=== PATIENT | female | born 2000 | race Caucasian/White ===

== ENCOUNTER 2022-03-04 20:47 | Inpatient (IN) ==
[2022-03-04] MEDS ORDERED: methylPREDNISolone 125 MG/2 ML VIAL IV STA (21:09)
[2022-03-04] MEDS ORDERED: SODIUM CHLORIDE 0.9% 1000ML 1,000 ML IV STA (21:09)
[2022-03-04] MEDS ORDERED: fentaNYL citrate 100 MCG/2 ML VIAL IV PRN (21:09)
[2022-03-04] MEDS ORDERED: ONDANSETRON INJ 2 MG/ML 2 ML VIAL IV STA (21:09)
--- NOTE | 2022-03-04 21:18 | Emergency Department Note ---
Impression & Plan Bowel disease, inflammatory, Acute GI bleeding, Anemia ED Provider Note The patient is a 21-year-old female who presented to the emergency department for an evaluation of abdominal pain.NAME: JORG EA LAMA AGE: 21 SEX: F : 2000 ARRIVES VIA: Walk-In INFORMANT: Patient, ED PROVIDER(S): Wagner Short DO CHIEF COMPLAINT: Abdominal pain HPI: The patient describes diffuse abdominal pain associated with bloody diarrhea. She states that she has had symptoms in the past similar to this with exacerbation of inflammatory bowel disease. The patient is normally treated with biologic medications but she missed her last 2 infusions and her symptoms have slowly been worsening especially over the last few weeks. She called her primary granite cutter and was referred to the emergency department for IV fluids and IV steroids and possible admission for further inpatient management. The patient states that she was having worsening pain especially with palpation of the lower abdomen. She denies having any vaginal bleeding. She denies having any dysuria or frequency. She denies having any fever tonight. She states otherwise she is been compliant with her outpatient medications. She used to have a local granite cutter and she would like to follow-up with him again. ROS: See above HPI for pertinent positives & negatives. A total of 10 systems reviewed and were otherwise negative. PAST MEDICAL HISTORY: See Below PAST SURGICAL HISTORY: See Below FAMILY HISTORY: See Below SOCIAL HISTORY: See Below HOME MEDICATIONS: See Below ALLERGIES: See Below VITALS: See Below PHYSICAL EXAMINATION: GENERAL: Patient is awake alert in no acute distress patient is resting comfortably and showing no signs of anxiety EYES: The conjunctivae are clear. The pupils are round and reactive. EARS, NOSE, MOUTH AND THROAT: The nose is without any evidence of any deformity. NECK: The neck is nontender and supple. RESPIRATORY: Normal respiratory effort is noted there is no evidence of wheezing rhonchi or rales CARDIOVASCULAR: Regular rate and rhythm noted there no murmurs rubs or gallops normal S1 normal S2. GASTROINTESTINAL: The abdomen is soft and nondistended. There is diffuse tenderness to palpation but no guarding rigidity. MUSCULOSKELETAL/EXTREMITIES: There is no evidence of gross deformity full range of motion is noted in the hips and shoulders. SKIN: There is no obvious evidence of any rash. There are no petechiae, pallor or cyanosis noted. NEUROLOGIC: Patient is awake alert and oriented x3 MEDICAL DECISION MAKING: Patient is a 21-year-old female who presented to emergency department for evaluation of abdominal pain. The patient has a history of inflammatory bowel disease. The patient had rectal bleeding as well as abdominal cramping. The patient has a history of seeing gastroenterology in the past for this. She was to be on biologic medications for this however she has missed her last 2 doses. She called her GI doctor and was instructed to go to the emergency department for IV fluids IV steroids and further evaluation and likely admission. The patient was found to have abdominal tenderness but her exam was not consistent with acute surgical abdomen. She was found have anemia. She was treated with IV fluids and IV steroids. She was reevaluated multiple times. Given her findings I [facility] to evaluate the patient in the emergency department for further management and disposition. Triage Nursing notes reviewed. Prior medical records reviewed Vital Signs: reviewed and remarkable for no significant abnormalities Differential diagnosis: Etiologies such as appendicitis, diverticulitis, obstruction, inflammatory bowel disease, renal colic, PUD, biliary pathology, pancreatitis, mesenteric ischemia, aortic pathology, infections, genitourinary, UTI, perforated viscus, as well as others were entertained. ER treatment provided: See below Diagnostics interpreted by me: ECG: none Cardiac Monitoring: An order was placed for continuous cardiac monitoring. The monitor shows a rate of 92 bpm with sinus rhythm. Laboratory studies: As stated above and show below. Imaging studies: See below Consultation(s): I discussed this case with Dr. Vidales who [facility] They will evaluate the patient in the emergency department. Past Med/Surg History Medical History Inflammatory bowel disease PIH ( induced hypertension) Surgical History History of delivery History of colonoscopy Family History Father Ulcerative colitis Social History Smoking Status: Never smoker Hx Alcohol Use: No Hx Substance Use: No Preferred Language: Polish Communication Ability: Effective Snailer Required: No Beliefs That Will Affect Care: None Current Living Situation: Family Current Living Situation Comment: Mother Feels Safe at Home: Yes Assistive Devices: None Allergies Allergies Allergy/AdvReac Type Severity Reaction Status Date / Time No Known Allergies Allergy Verified 03/04/22 22:21 Home Meds Home Medications Medication Instructions Recorded Confirmed vedolizumab 300 mg intravenous 0 mg IV .Q8WKS 03/04/22 03/04/22 solution (Entyvio) Results & Data (ED) Vital Signs Vital Signs - 24 hr 03/04/22 20:50 03/04/22 21:09 Temperature 36.8 C Temperature Source Temporal Artery Scan Pulse Rate 101 H Pulse Rate [Apical] 92 H Pulse Rhythm Regular Pulse Rhythm [Apical] Regular Pulse Strength Normal Respiratory Rate 18 16 Respiratory Effort / Characteristics Non-Labored Spontaneous Respiratory Depth Normal Blood Pressure 121/79 Blood Pressure [Left Arm] 130/44 L Blood Pressure Mean 93 Blood Pressure Mean [Left Arm] 72 Pulse Oximetry 100 97 Oxygen Delivery Method Room Air Room Air Sepsis Recent Fever Within 48 Hours No Sepsis New/Unexplained Change in Mental Status N/A Sepsis Action Taken by Nursing No Action Required Home Medications Current Medication List: was personally reviewed by me Laboratory Data Attestation: I reviewed the patient's lab results. Result diagrams: 03/04/22 21:14 03/04/22 21:14 Lab Results 03/04/22 03/04/22 03/04/22 Range/Units 21:13 21:14 21:14 WBC 10.18 (4.8-10.8) K/uL RBC 3.25 L (4.2-5.4) M/uL Hgb 8.1 L (12.0-16.0) g/dL Hct 27.2 L (37-47) % MCV 83.7 (80-100) fL MCH 24.9 L (25-34) pg MCHC 29.8 L (32-36) g/dL RDW Std Deviation 44.5 (36.4-46.3) fL RDW Coeff of You 14.4 (11.5-14.5) % Plt Count 696 H (130-400) K/uL MPV 8.1 (7.4-10.4) fL Immature Gran % (Auto) 0.6 % Neut % (Auto) 60.6 % Lymph % (Auto) 24.1 % Dooly % (Auto) 8.5 % Eos % (Auto) 5.8 % Baso % (Auto) 0.4 % Neut # (Auto) 6.17 (1.4-6.5) K/uL Lymph # (Auto) 2.45 (1.2-3.4) K/uL Dooly # (Auto) 0.87 H (0.11-0.59) K/uL Eos # (Auto) 0.59 H (0-0.5) K/uL Baso # (Auto) 0.04 (0-0.2) K/uL Immature Gran # (Auto) 0.06 H (0.00-0.02) K/uL ESR 46 H (0-20) mm/hr Sodium (136-145) mmol/L Potassium (3.5-5.1) mmol/L Chloride (98-107) mmol/L Carbon Dioxide (21-32) mmol/L Anion Gap (3-11) BUN (6-23) mg/dl Creatinine (0.6-1.2) mg/dl Est Cr Clr Drug Dosing ml/min Est GFR ( Amer) ml/min Est GFR (Non-Af Amer) ml/min BUN/Creatinine Ratio (10-20) Glucose (70-99(Fasting)) mg/dl Calcium (8.5-10.1) mg/dl Total Bilirubin (0.2-1.0) mg/dl AST (13-39) U/L ALT (7-52) U/L Alkaline Phosphatase (34-104) U/L C-Reactive Protein (0-0.5) mg/dl Total Protein (6.0-8.3) gm/dl Albumin (3.4-5.0) gm/dl Globulin (2.5-4.0) gm/dl Albumin/Globulin Ratio (0.9-2) Lipase (11-82) U/L HCG, Qual (Negative) SARS-CoV-2, RNA, NAAT NEGATIVE (NEGATIVE) Blood Type Antibody Screen 03/04/22 03/04/22 03/04/22 Range/Units 21:14 21:14 21:45 WBC (4.8-10.8) K/uL RBC (4.2-5.4) M/uL Hgb (12.0-16.0) g/dL Hct (37-47) % MCV (80-100) fL MCH (25-34) pg MCHC (32-36) g/dL RDW Std Deviation (36.4-46.3) fL RDW Coeff of You (11.5-14.5) % Plt Count (130-400) K/uL MPV (7.4-10.4) fL Immature Gran % (Auto) % Neut % (Auto) % Lymph % (Auto) % Dooly % (Auto) % Eos % (Auto) % Baso % (Auto) % Neut # (Auto) (1.4-6.5) K/uL Lymph # (Auto) (1.2-3.4) K/uL Dooly # (Auto) (0.11-0.59) K/uL Eos # (Auto) (0-0.5) K/uL Baso # (Auto) (0-0.2) K/uL Immature Gran # (Auto) (0.00-0.02) K/uL ESR (0-20) mm/hr Sodium 136 (136-145) mmol/L Potassium 3.8 (3.5-5.1) mmol/L Chloride 101 (98-107) mmol/L Carbon Dioxide 28 (21-32) mmol/L Anion Gap 7 (3-11) BUN 11 (6-23) mg/dl Creatinine 0.77 (0.6-1.2) mg/dl Est Cr Clr Drug Dosing 83.8 ml/min Est GFR ( Amer) 126.1 ml/min Est GFR (Non-Af Amer) 108.8 ml/min BUN/Creatinine Ratio 14.3 (10-20) Glucose 91 (70-99(Fasting)) mg/dl Calcium 8.8 (8.5-10.1) mg/dl Total Bilirubin 0.2 (0.2-1.0) mg/dl AST 9 L (13-39) U/L ALT 5 L (7-52) U/L Alkaline Phosphatase 63 (34-104) U/L C-Reactive Protein 1.09 H (0-0.5) mg/dl Total Protein 7.0 (6.0-8.3) gm/dl Albumin 3.4 (3.4-5.0) gm/dl Globulin 3.6 (2.5-4.0) gm/dl Albumin/Globulin Ratio 0.9 (0.9-2) Lipase 25 (11-82) U/L HCG, Qual Negative (Negative) SARS-CoV-2, RNA, NAAT (NEGATIVE) Blood Type AB Positive Antibody Screen NEGATIVE Administered Medications Discontinued Medications Sodium Chloride (Nss 1000ml) 1,000 mls @ 999 mls/hr IV .Q1H1M STA Stop: 03/04/22 22:09 Last Admin: 03/04/22 21:29 Dose: 999 mls/hr Documented by: [id number] Methylprednisolone (Methylprednisolone 125 Mg/2 Ml Vial) 125 mg IV NOW STA Stop: 03/04/22 21:10 Last Admin: 03/04/22 21:29 Dose: 125 mg Documented by: [id number] Ondansetron HCl (Ondansetron Inj 2 Mg/Ml 2 Ml Vial) 4 mg IV NOW STA Stop: 03/04/22 21:10 Last Admin: 03/04/22 21:29 Dose: 4 mg Documented by: [id number] Imaging Data Attestation: I personally reviewed and interpreted this imaging study as follows: My Impression: KUB was obtained in the emergency department. My interpretation is no free air, nonspecific bowel gas pattern, no definite obstruction, stool was noted in the lower rectum. Discharge Plan Visit Data Chief Complaint: GI Assessment Stated Complaint: ULCERATIVE COLITIS FLARE UP ED Provider: Wagner Short Discharge Problem: Bowel disease, inflammatory, Acute GI bleeding, Anemia Patient Disposition: Being Evaluated by Hospitalist Forms Stand Alone Forms: My [facility] Prescriptions Prescriptions: No Action Entyvio 300 mg Recon Soln 0 mg IV .Q8WKS RF: 0 Referrals Referrals: PCP,NO [Primary Care Provider] -
[2022-03-04 21:27] LABS: Basophils # (auto) 0.04 K/uL (0-0.2); Basophils % (auto) 0.4 %; Eosinophils # (auto) 0.59 K/uL (0-0.5); Eosinophils % (auto) 5.8 %; Hematocrit (blood only) 27.2 % (37-47); Hemoglobin 8.1 g/dL (12.0-16.0); Immature Granulocytes # (auto) 0.06 K/uL (0.00-0.02); Immature Granulocytes % (auto) 0.6 %; Lymphocytes # (auto) 2.45 K/uL (1.2-3.4); Lymphocytes % (auto) 24.1 %; Mean Corpuscular Hemoglobin 24.9 pg (25-34); Mean Corpuscular Hgb Conc 29.8 g/dL (32-36); Mean Corpuscular Volume 83.7 fL (80-100); Mean Platelet Volume 8.1 fL (7.4-10.4); Monocytes # (auto) 0.87 K/uL (0.11-0.59); Monocytes % (auto) 8.5 %; Neutrophils # (auto) 6.17 K/uL (1.4-6.5); Neutrophils % (auto) 60.6 %; Platelet Count 696 K/uL (130-400); RDW Coefficient of Variation 14.4 % (11.5-14.5); RDW Standard Deviation 44.5 fL (36.4-46.3); Red Blood Count 3.25 M/uL (4.2-5.4); White Blood Count 10.18 K/uL (4.8-10.8)
[2022-03-04 21:40] LABS: Pregnancy Test, Serum Negative (Negative)
[2022-03-04 21:53] LABS: Albumin Globulin Ratio 0.9 (0.9-2); Albumin Level 3.4 gm/dl (3.4-5.0); BUN Creatinine Ratio 14.3 (10-20); Bilirubin,Total 0.2 mg/dl (0.2-1.0); C Reactive Protein 1.09 mg/dl (0-0.5); Calcium 8.8 mg/dl (8.5-10.1); Creatinine Clr Calc Pharmacy 83.8 ml/min; Est GFR (African American) 126.1 ml/min; Est GFR (Non-African American) 108.8 ml/min; Globulin 3.6 gm/dl (2.5-4.0); Potassium 3.8 mmol/L (3.5-5.1)
--- NOTE | 2022-03-04 23:36 | History & Physical Report ---
Date of Service March 04, 2022 Assessment & Plan (1) History of lower GI bleeding: Plan: Protracted IBD flareup hx Entyvio infusion Patient nontoxic Rule out C. difficile Chronic anemia, hemoglobin at baseline GMF Steroid Rx Check C. difficile GI consult Re: IBD flareup Retrieve records from [place] utilization specialist (Dr. Weems). DVT prophylaxis. SCDs Re: GI bleed Full code Text document was generated using Smart Voicemail voice recognition software. It may contain grammatical or spelling errors. Kindly contact undersigned for clarification of any documentation item in question. History of Present Illness Chief Complaint: Abdominal pain, bloody diarrhea Primary Care Provider: NO PCP History obtained from patient and records. Medical history significant for ulcerative colitis currently on Entyvio, chronic anemia (baseline hemoglobin 8) history of preeclampsia. Last confinement September 2018 for ulcerative colitis flare. Patient subsequently relocated to [place], [place] for work. [place] utilization specialist has patient on Entyvio infusions every 8 weeks. Last infusion was a few weeks ago. Patient relocated back to [place], [place] early this year. Has been seeing her utilization specialist from [place] until patient can reestablish care with her [facility] GI specialist in [place] in May 2022. Last month, patient with achy abdominal pain more on the right with bloody diarrhea symptoms reminiscent of IBD flareup. No response to Entyvio infusions and outpatient prednisone courses. [facility] ([place], [place]) ER visit a few weeks ago which culminated in patient signing out AGAINST MEDICAL ADVICE because she was not happy with the care. No chest pain, no SOB. Some chills. No recent antibiotic Rx. Patient consulted ER for worsening symptoms. 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 Allergies Allergy/AdvReac Type Severity Reaction Status Date / Time No Known Allergies Allergy Verified 03/04/22 22:21 Home Medications Medication Instructions Recorded Confirmed Type vedolizumab 300 mg intravenous 0 mg IV .Q8WKS 03/04/22 03/04/22 History solution (Entyvio) Past Med/Surg History Medical History Inflammatory bowel disease PIH ( induced hypertension) Surgical History History of delivery History of colonoscopy Family History Father Ulcerative colitis Social History Smoking Status: Never smoker Hx Alcohol Use: No Hx Substance Use: No Preferred Language: Albanian Communication Ability: Effective Hyperion Developer Required: No Beliefs That Will Affect Care: None Current Living Situation: Family Current Living Situation Comment: Mother Other Information That Helps Us Care for You: No Feels Safe at Home: Yes Safety Concerns: Feels Safe At This Time Assistive Devices: None Review of Systems Review of Systems: As per HPI, all other systems reviewed and negative Physical Exam Physical Exam: GENERAL: Comfortable, pleasant, underweight, no respiratory distress SKIN: Pallor, warm HEENT: Pale palpebral conjunctivae, no ptosis, dry buccal mucosa NECK : Supple, no tenderness CHEST : CTA, no tenderness HEART : RRR, no obvious murmurs ABDOMEN: Some distention, minimal right-sided abdominal tenderness EXTREMITIES : No LE swelling/tenderness, no other conspicuous deformities noted NEUROLOGIC : Coherent, no facial asymmetry, no other gross focality Results & Data Results & Data ([facility]) Vital Signs (Past 12 Hours) Vital Signs Temp Pulse Pulse Resp BP BP Pulse Ox 03/04/22 21:09 92 H 16 130/44 L 97 03/04/22 20:50 36.8 C 101 H 18 121/79 100 Laboratory Results Laboratory Results WBC 10.18 K/uL (4.8-10.8) 03/04/22 21:14 RBC 3.25 M/uL (4.2-5.4) L 03/04/22 21:14 Hgb 8.1 g/dL (12.0-16.0) L 03/04/22 21:14 Hct 27.2 % (37-47) L 03/04/22 21:14 MCV 83.7 fL (80-100) 03/04/22 21:14 MCH 24.9 pg (25-34) L 03/04/22 21:14 MCHC 29.8 g/dL (32-36) L 03/04/22 21:14 RDW Std Deviation 44.5 fL (36.4-46.3) 05/24/22 21:14 RDW Coeff of You 14.4 % (11.5-14.5) 03/04/22 21:14 Plt Count 696 K/uL (130-400) H 03/04/22 21:14 MPV 8.1 fL (7.4-10.4) 03/04/22 21:14 Immature Gran % (Auto) 0.6 % 03/04/22 21:14 Neut % (Auto) 60.6 % 03/04/22 21:14 Lymph % (Auto) 24.1 % 03/04/22 21:14 Callahan % (Auto) 8.5 % 03/04/22 21:14 Eos % (Auto) 5.8 % 03/04/22 21:14 Baso % (Auto) 0.4 % 03/04/22 21:14 Neut # (Auto) 6.17 K/uL (1.4-6.5) 03/04/22 21:14 Lymph # (Auto) 2.45 K/uL (1.2-3.4) 03/04/22 21:14 Callahan # (Auto) 0.87 K/uL (0.11-0.59) H 03/04/22 21:14 Eos # (Auto) 0.59 K/uL (0-0.5) H 03/04/22 21:14 Baso # (Auto) 0.04 K/uL (0-0.2) 03/04/22 21:14 Immature Gran # (Auto) 0.06 K/uL (0.00-0.02) H 03/04/22 21:14 ESR 46 mm/hr (0-20) H 03/04/22 21:14 Sodium 136 mmol/L (136-145) 03/04/22 21:14 Potassium 3.8 mmol/L (3.5-5.1) 03/04/22 21:14 Chloride 101 mmol/L (98-107) 03/04/22 21:14 Carbon Dioxide 28 mmol/L (21-32) 03/04/22 21:14 Anion Gap 7 (3-11) 03/04/22 21:14 BUN 11 mg/dl (6-23) 03/04/22 21:14 Creatinine 0.77 mg/dl (0.6-1.2) 03/04/22 21:14 Est Cr Clr Drug Dosing 83.8 ml/min 03/04/22 21:14 Est GFR ( Amer) 126.1 ml/min 03/04/22 21:14 Est GFR (Non-Af Amer) 108.8 ml/min 03/04/22 21:14 BUN/Creatinine Ratio 14.3 (10-20) 03/04/22 21:14 Glucose 91 mg/dl (70-99(Fasting)) 03/04/22 21:14 Calcium 8.8 mg/dl (8.5-10.1) 03/04/22 21:14 Total Bilirubin 0.2 mg/dl (0.2-1.0) 03/04/22 21:14 AST 9 U/L (13-39) L 03/04/22 21:14 ALT 5 U/L (7-52) L 03/04/22 21:14 Alkaline Phosphatase 63 U/L (34-104) 03/04/22 21:14 C-Reactive Protein 1.09 mg/dl (0-0.5) H 03/04/22 21:14 Total Protein 7.0 gm/dl (6.0-8.3) 03/04/22 21:14 Albumin 3.4 gm/dl (3.4-5.0) 03/04/22 21:14 Globulin 3.6 gm/dl (2.5-4.0) 03/04/22 21:14 Albumin/Globulin Ratio 0.9 (0.9-2) 03/04/22 21:14 Lipase 25 U/L (11-82) 03/04/22 21:14 HCG, Qual Negative (Negative) 03/04/22 21:14 SARS-CoV-2, RNA, NAAT NEGATIVE (NEGATIVE) 03/04/22 21:13 Blood Type AB Positive 03/04/22 21:45 Antibody Screen NEGATIVE 03/04/22 21:[address] abdomen pelvis initial read: Diffuse colonicwall thickening. Mild surrounding fat stranding. Consistent with colitis. Appendix not clearlyvisualized. Possible normal appendix in the right lower pelvis partiallyvisualized. No free air, free fluid or bowel obstruction
[2022-03-04] MEDS ORDERED: traMADol HCL 50 MG TABLET PO PRN (23:41)
[2022-03-04] MEDS ORDERED: KETOROLAC TROMETHAMINE 15 MG/ML VIAL IV PRN (23:42)
[2022-03-04] MEDS ORDERED: PROMETHAZINE HCL 6.25 MG in SODIUM CHLORIDE 0.9% 50 ML IV PRN (23:42)
[2022-03-04] MEDS ORDERED: ACETAMINOPHEN 325 MG TAB PO PRN (23:42)
[2022-03-04] MEDS ORDERED: LACTATED RINGER'S 1,000 ML IV ONE (23:43)
[2022-03-05] MEDS ORDERED: OPTIRAY 320 100ml IV ONE (00:11)
[2022-03-05 00:44] LABS: Hematocrit (blood only) 25.7 % (37-47); Hemoglobin 7.7 g/dL (12.0-16.0)
[2022-03-05 05:29] LABS: Adenovirus F 40/41 PCR Not Detected (NotDetected); Astrovirus PCR Not Detected (NotDetected); Campylobacter PCR Not Detected (NotDetected); Clostridium diff Toxin A/B PCR Not Detected (NotDetected); Cryptosporidium PCR Not Detected (NotDetected); Cyclospora cayetanensis PCR Not Detected (NotDetected); Entamoeba histolytica PCR Not Detected (NotDetected); Enteroaggregative E.coli(EAEC) Not Detected (NotDetected); Enteropathogenic E.coli (EPEC) Not Detected (NotDetected); Enterotoxigenic E.coli (ETEC) Not Detected (NotDetected); Giardia lamblia PCR Not Detected (NotDetected); Norovirus GI/GII PCR Not Detected (NotDetected); Plesiomonas shigelloides PCR Not Detected (NotDetected); Rotavirus A PCR Not Detected (NotDetected); Salmonella PCR Not Detected (NotDetected); Sapovirus PCR Not Detected (NotDetected); Shiga-like Toxin E.coli (STEC) Not Detected (NotDetected); Shigella/Enteroinvasive E.coli Not Detected (NotDetected); Vibrio cholerae PCR Not Detected (NotDetected); Vibrio species PCR Not Detected (NotDetected); Yersinia enterocolitica PCR Not Detected (NotDetected)
--- NOTE | 2022-03-05 06:42 | XRay Report ---
KUB CLINICAL HISTORY: Abdominal pain. COMPARISON STUDY: None. FINDINGS: Right pelvic calcification represents a phlebolith. The bowel gas pattern is normal. Amount of stool is within normal limits. No urinary calculi are identified. IMPRESSION: Unremarkable KUB. No evidence for a bowel obstruction. ACT 112: Negative or not required by law. Electronically signed by: Andrey Cooper M.D. 03/05/2022 6:40 AM
--- NOTE | 2022-03-05 06:50 | CT Scan Report ---
CT OF THE ABDOMEN AND PELVIS WITH CONTRAST CLINICAL HISTORY: Abdominal pain. COMPARISON STUDY: KUB March 04, 2022. TECHNIQUE: Following IV administration of 92 mL of Optiray, axial images of the abdomen and pelvis we re obtained from the lung bases to the proximal femurs. Images were reviewed in the axial, sagittal, and coronal planes. IV contrast was administered without complication. Automated exposure control wa s utilized for the study. A dose lowering technique was utilized adhering to the principles of ALARA . CT DOSE: 249.30 mGy.cm FINDINGS: Lung bases are unremarkable. No pneumatosis, free air or portal venous gas is present. Live r, spleen, adrenal glands, kidneys and pancreas are normal. There is no biliary or pancreatic ductal dilatation. No peripancreatic or pericholecystic infiltration is present. There is no hydronephrosis. Major vasculature is patent. There is no evidence for a bowel obstruction. The appendix is normal. T here is moderate colonic wall thickening with pericolonic stranding and prominence of the mesenteric vessels. This involves the entire colon as well as the rectum. The appendix is normal. There is no ab scess. Perirectal/perianal soft tissues are unremarkable. No acute fracture or suspicious lesion is i dentified within the visualized skeletal structures. The ovaries are not enlarged. IMPRESSION: 1. Findings consistent with a pancolitis which also involves the rectum. The findings favor active in flammatory bowel disease such as ulcerative colitis. An infectious colitis could appear similar. No a bscess. No bowel obstruction. 2. Normal appendix. ACT 112: Negative or not required by law. Electronically signed by: Andrey Cooper M.D. 03/05/2022 6:48 AM
[2022-03-05] MEDS: methylPREDNISolone 20 MG in SYRINGE 0 ML IV SCH ×3 (07:37→23:38)
--- NOTE | 2022-03-05 07:58 | Hospitalist Progress Note ---
Date of Service March 05, 2022 Assessment & Plan (1) History of lower GI bleeding: Plan: Protracted IBD flareup - likely UC flare hx Entyvio infusion Patient nontoxic Rule out C. difficile C. difficile pending GMF Steroid Rx, continue with methylprednisolone IV 20 mg every 8 hourly GI consult Re: IBD flareup ESR/CRP elevated, continue to monitor Pt has GI appt with Dr. Easley on 06/04/2022 Retrieve records from [place] comic artist (Dr. Weems). Chronic anemia, hemoglobin at baseline Continue monitor H&H Check iron, ferritin, transferrin , B12, folate levels Iron low, B12, folate WNL DVT prophylaxis. SCDs Re: GI bleed Full code Admission and Anticipated Discharge Date Admission Date: March 04, 2022 Subjective Patient seen in follow-up of GI bleed, UC flare Currently laying in bed, in no acute distress No fevers, chills, chest pain, shortness of breath, however occasional dizziness Reports right lower abdominal tenderness to palpation, several BMs a day C. difficile pending GI consulted Review of Systems Review of Systems: All systems reviewed & are unremarkable except as noted in Subjective Physical Exam Physical Exam: GENERAL: young thin F in NAD SKIN: Pallor, warm HEENT: NC/AT, EOMI, PERRL NECK : Supple, no tenderness CHEST : CTA, no tenderness HEART : RRR, no obvious murmurs ABDOMEN: soft, + mild right-sided abdominal tenderness, + bs EXTREMITIES : No LE swelling/tenderness, moves extremities SKIN: Pallor, warm NEUROLOGIC : Alert and oriented, answering questions appropriately, speech fluent, no facial asymmetry, moves extremities Results & Data Results & Data ([facility] [place]) Vital Signs (Past 12 Hours) Vital Signs Temp Pulse Pulse Pulse Resp BP BP 03/05/22 01:15 36.8 C 78 16 03/05/22 00:50 83 18 115/66 03/04/22 23:42 83 16 117/74 03/04/22 21:09 92 H 16 130/44 L 03/04/22 20:50 36.8 C 101 H 18 121/79 BP Pulse Ox 03/05/22 01:15 109/74 98 03/05/22 00:50 99 03/04/22 23:42 99 03/04/22 21:09 97 03/04/22 20:50 100 Laboratory Results 03/05/22 03/05/22 03/05/22 Range/Units 07:46 04:00 00:34 WBC (4.8-10.8) K/uL RBC (4.2-5.4) M/uL Hgb 7.7 L (12.0-16.0) g/dL Hct 25.7 L (37-47) % MCV (80-100) fL MCH (25-34) pg MCHC (32-36) g/dL RDW Std Deviation (36.4-46.3) fL RDW Coeff of You (11.5-14.5) % Plt Count (130-400) K/uL MPV (7.4-10.4) fL Immature Gran % (Auto) % Neut % (Auto) % Lymph % (Auto) % [place] % (Auto) % Eos % (Auto) % Baso % (Auto) % Neut # (Auto) (1.4-6.5) K/uL Lymph # (Auto) (1.2-3.4) K/uL [place] # (Auto) (0.11-0.59) K/uL Eos # (Auto) (0-0.5) K/uL Baso # (Auto) (0-0.2) K/uL Immature Gran # (Auto) (0.00-0.02) K/uL ESR (0-20) mm/hr Sodium (136-145) mmol/L Potassium (3.5-5.1) mmol/L Chloride (98-107) mmol/L Carbon Dioxide (21-32) mmol/L Anion Gap (3-11) BUN (6-23) mg/dl Creatinine (0.6-1.2) mg/dl Est Cr Clr Drug Dosing ml/min Est GFR ( Amer) ml/min Est GFR (Non-Af Amer) ml/min BUN/Creatinine Ratio (10-20) Glucose (70-99(Fasting)) mg/dl Calcium (8.5-10.1) mg/dl Total Bilirubin (0.2-1.0) mg/dl AST (13-39) U/L ALT (7-52) U/L Alkaline Phosphatase (34-104) U/L C-Reactive Protein (0-0.5) mg/dl Total Protein (6.0-8.3) gm/dl Albumin (3.4-5.0) gm/dl Globulin (2.5-4.0) gm/dl Albumin/Globulin Ratio (0.9-2) Lipase (11-82) U/L HCG, Qual (Negative) Urine Color Pending Urine Appearance Pending Urine pH Pending Ur Specific [place] Pending Urine Protein Pending Urine Glucose (UA) Pending Urine Ketones Pending Urine Blood Pending Urine Nitrite Pending Urine Bilirubin Pending Urine Urobilinogen Pending Ur Leukocyte Esterase Pending Stl C. cayetanensis PCR Not Detected (NotDetected) Stool Rotavirus A PCR Not Detected (NotDetected) Stl Adenov F 40/41 PCR Not Detected (NotDetected) Stool Astrovirus (PCR) Not Detected (NotDetected) Stool Campylobacter PCR Not Detected (NotDetected) Stl C. diff Tox A/B PCR Not Detected (NotDetected) Stool Cryptosporidium PCR Not Detected (NotDetected) Stl E.coli Shiga Tox PCR Not Detected (NotDetected) Stl Enterotoxigenic E PCR Not Detected (NotDetected) Stool EPEC (PCR) Not Detected (NotDetected) Stool EAEC (PCR) Not Detected (NotDetected) Stl E. histolytica PCR Not Detected (NotDetected) Stool Giardia Lamblia PCR Not Detected (NotDetected) Stool Salmonella PCR Not Detected (NotDetected) Stool Sapovirus (PCR) Not Detected (NotDetected) Stl P. shigelloides PCR Not Detected (NotDetected) Stl Shigella/EIEC PCR Not Detected (NotDetected) St Y.enterocolitica PCR Not Detected (NotDetected) Stool Vibrio (PCR) Not Detected (NotDetected) Stl Vibrio cholerae PCR Not Detected (NotDetected) Stl Norovirus GI/GII PCR Not Detected (NotDetected) SARS-CoV-2, RNA, NAAT (NEGATIVE) Blood Type Antibody Screen 03/04/22 03/04/22 03/04/22 Range/Units 21:45 21:14 21:14 WBC (4.8-10.8) K/uL RBC (4.2-5.4) M/uL Hgb (12.0-16.0) g/dL Hct (37-47) % MCV (80-100) fL MCH (25-34) pg MCHC (32-36) g/dL RDW Std Deviation (36.4-46.3) fL RDW Coeff of You (11.5-14.5) % Plt Count (130-400) K/uL MPV (7.4-10.4) fL Immature Gran % (Auto) % Neut % (Auto) % Lymph % (Auto) % [place] % (Auto) % Eos % (Auto) % Baso % (Auto) % Neut # (Auto) (1.4-6.5) K/uL Lymph # (Auto) (1.2-3.4) K/uL [place] # (Auto) (0.11-0.59) K/uL Eos # (Auto) (0-0.5) K/uL Baso # (Auto) (0-0.2) K/uL Immature Gran # (Auto) (0.00-0.02) K/uL ESR (0-20) mm/hr Sodium 136 (136-145) mmol/L Potassium 3.8 (3.5-5.1) mmol/L Chloride 101 (98-107) mmol/L Carbon Dioxide 28 (21-32) mmol/L Anion Gap 7 (3-11) BUN 11 (6-23) mg/dl Creatinine 0.77 (0.6-1.2) mg/dl Est Cr Clr Drug Dosing 83.8 ml/min Est GFR ( Amer) 126.1 ml/min Est GFR (Non-Af Amer) 108.8 ml/min BUN/Creatinine Ratio 14.3 (10-20) Glucose 91 (70-99(Fasting)) mg/dl Calcium 8.8 (8.5-10.1) mg/dl Total Bilirubin 0.2 (0.2-1.0) mg/dl AST 9 L (13-39) U/L ALT 5 L (7-52) U/L Alkaline Phosphatase 63 (34-104) U/L C-Reactive Protein 1.09 H (0-0.5) mg/dl Total Protein 7.0 (6.0-8.3) gm/dl Albumin 3.4 (3.4-5.0) gm/dl Globulin 3.6 (2.5-4.0) gm/dl Albumin/Globulin Ratio 0.9 (0.9-2) Lipase 25 (11-82) U/L HCG, Qual Negative (Negative) Urine Color Urine Appearance Urine pH Ur Specific [place] Urine Protein Urine Glucose (UA) Urine Ketones Urine Blood Urine Nitrite Urine Bilirubin Urine Urobilinogen Ur Leukocyte Esterase Stl C. cayetanensis PCR (NotDetected) Stool Rotavirus A PCR (NotDetected) Stl Adenov F 40/41 PCR (NotDetected) Stool Astrovirus (PCR) (NotDetected) Stool Campylobacter PCR (NotDetected) Stl C. diff Tox A/B PCR (NotDetected) Stool Cryptosporidium PCR (NotDetected) Stl E.coli Shiga Tox PCR (NotDetected) Stl Enterotoxigenic E PCR (NotDetected) Stool EPEC (PCR) (NotDetected) Stool EAEC (PCR) (NotDetected) Stl E. histolytica PCR (NotDetected) Stool Giardia Lamblia PCR (NotDetected) Stool Salmonella PCR (NotDetected) Stool Sapovirus (PCR) (NotDetected) Stl P. shigelloides PCR (NotDetected) Stl Shigella/EIEC PCR (NotDetected) St Y.enterocolitica PCR (NotDetected) Stool Vibrio (PCR) (NotDetected) Stl Vibrio cholerae PCR (NotDetected) Stl Norovirus GI/GII PCR (NotDetected) SARS-CoV-2, RNA, NAAT (NEGATIVE) Blood Type AB Positive Antibody Screen NEGATIVE 03/04/22 03/04/22 03/04/22 Range/Units 21:14 21:14 21:13 WBC 10.18 (4.8-10.8) K/uL RBC 3.25 L (4.2-5.4) M/uL Hgb 8.1 L (12.0-16.0) g/dL Hct 27.2 L (37-47) % MCV 83.7 (80-100) fL MCH 24.9 L (25-34) pg MCHC 29.8 L (32-36) g/dL RDW Std Deviation 44.5 (36.4-46.3) fL RDW Coeff of You 14.4 (11.5-14.5) % Plt Count 696 H (130-400) K/uL MPV 8.1 (7.4-10.4) fL Immature Gran % (Auto) 0.6 % Neut % (Auto) 60.6 % Lymph % (Auto) 24.1 % [place] % (Auto) 8.5 % Eos % (Auto) 5.8 % Baso % (Auto) 0.4 % Neut # (Auto) 6.17 (1.4-6.5) K/uL Lymph # (Auto) 2.45 (1.2-3.4) K/uL [place] # (Auto) 0.87 H (0.11-0.59) K/uL Eos # (Auto) 0.59 H (0-0.5) K/uL Baso # (Auto) 0.04 (0-0.2) K/uL Immature Gran # (Auto) 0.06 H (0.00-0.02) K/uL ESR 46 H (0-20) mm/hr Sodium (136-145) mmol/L Potassium (3.5-5.1) mmol/L Chloride (98-107) mmol/L Carbon Dioxide (21-32) mmol/L Anion Gap (3-11) BUN (6-23) mg/dl Creatinine (0.6-1.2) mg/dl Est Cr Clr Drug Dosing ml/min Est GFR ( Amer) ml/min Est GFR (Non-Af Amer) ml/min BUN/Creatinine Ratio (10-20) Glucose (70-99(Fasting)) mg/dl Calcium (8.5-10.1) mg/dl Total Bilirubin (0.2-1.0) mg/dl AST (13-39) U/L ALT (7-52) U/L Alkaline Phosphatase (34-104) U/L C-Reactive Protein (0-0.5) mg/dl Total Protein (6.0-8.3) gm/dl Albumin (3.4-5.0) gm/dl Globulin (2.5-4.0) gm/dl Albumin/Globulin Ratio (0.9-2) Lipase (11-82) U/L HCG, Qual (Negative) Urine Color Urine Appearance Urine pH Ur Specific [place] Urine Protein Urine Glucose (UA) Urine Ketones Urine Blood Urine Nitrite Urine Bilirubin Urine Urobilinogen Ur Leukocyte Esterase Stl C. cayetanensis PCR (NotDetected) Stool Rotavirus A PCR (NotDetected) Stl Adenov F PCR (NotDetected) Stool Astrovirus (PCR) (NotDetected) Stool Campylobacter PCR (NotDetected) Stl C. diff Tox A/B PCR (NotDetected) Stool Cryptosporidium PCR (NotDetected) Stl E.coli Shiga Tox PCR (NotDetected) Stl Enterotoxigenic E PCR (NotDetected) Stool EPEC (PCR) (NotDetected) Stool EAEC (PCR) (NotDetected) Stl E. histolytica PCR (NotDetected) Stool Giardia Lamblia PCR (NotDetected) Stool Salmonella PCR (NotDetected) Stool Sapovirus (PCR) (NotDetected) Stl P. shigelloides PCR (NotDetected) Stl Shigella/EIEC PCR (NotDetected) St Y.enterocolitica PCR (NotDetected) Stool Vibrio (PCR) (NotDetected) Stl Vibrio cholerae PCR (NotDetected) Stl Norovirus GI/GII PCR (NotDetected) SARS-CoV-2, RNA, NAAT NEGATIVE (NEGATIVE) Blood Type Antibody Screen Medications Administered Current Inpatient Medications Acetaminophen (Acetaminophen 325 Mg Tab) 650 mg PO Q4H PRN PRN Reason: pain/fever Stop: 04/03/22 23:41 Last Admin: 03/05/22 01:47 Dose: 650 mg Documented by: Promethazine HCl 6.25 mg/ (Sodium Chloride) 50.25 mls @ 201 mls/hr IV Q6H PRN PRN Reason: Nausea And Vomiting Stop: 04/03/22 23:41 Last Infusion: 03/05/22 04:35 Dose: Infused Documented by: Lactated Ringer's (Lr) 1,000 mls @ 80 mls/hr IV .[id number] ONE Stop: 03/05/22 12:12 Last Admin: 03/05/22 00:30 Dose: 80 mls/hr Documented by: Methylprednisolone 20 mg/ (Syringe) 0.32 mls @ 1.5 mls/min IV Q8H [facility] Stop: 04/04/22 07:59 Last Admin: 03/05/22 07:37 Dose: 1.5 mls/min Documented by: Ketorolac Tromethamine (Ketorolac Tromethamine 15 Mg/Ml Vial) 15 mg IV Q6H PRN PRN Reason: Pain Stop: 03/09/22 23:41 Tramadol HCl (Tramadol Hcl 50 Mg Tablet) 25 - 50 mg PO Q4H PRN PRN Reason: Pain Stop: 04/03/22 23:40
[2022-03-05 08:02] LABS: Appearance Urine Clear (Clear); Bilirubin Urine Negative (Negative); Blood Urine Negative (Negative); Color Urine Yellow; Glucose Urine UA Negative (Negative); Ketones Urine Negative (Negative); Leukocyte Esterase Urine Negative (Negative); Nitrite Urine Negative (Negative); Protein Urine Negative (Negative); Urobilinogen Urine Negative (Negative); pH Urine 6.5 (4.5-7.5)
[2022-03-05 09:37] LABS: C Reactive Protein 0.96 mg/dl (0-0.5)
[2022-03-05 10:00] LABS: Folate (Folic Acid) 14.56 ng/ml (>5.38)
--- NOTE | 2022-03-05 10:23 | Gastrointestinal Consultation ---
Date of Consultation March 05, 2022 Assessment & Plan (1) Acute GI bleeding: (2) Bowel disease, inflammatory: Patient is a 21 years old female admitted with symptoms of nausea, abdominal cramping, rectal bleeding. Work-up indicates anemia and CT with signs of pancolitis with rectal involvement however no obstruction or abscess. History of ulcerative colitis currently on Entyvio IV every 8 weeks. Stool cx negative, Cdiff pending. Suspect she may have IBD flare. - Check ESR, CRP, Fe/B12/Folate levels - Monitor blood ct and transfuse prn - CL diet; advance as tolerated - Continue Methylprednisone 20mg IV q8hrs - F/U Cdiff - Will discuss with my attending timing for repeat colonoscopy for disease surveillance. Per pt last colonoscopy done in [place] over a year ago - She has GI appt with Dr. Easley on 06/04/2022 Supervising Physician Co-Signing Physician Notes I have personally seen and examined the patient with MAGALY Upton. Her note reflects my exam and findings. I agree with her impression and plan. Probable UC flare. I am concerned that the patient may have some non compliance issues. F/u stool for C diff. Hossein Moreira M.D. History of Present Illness Reason for Consultation: Lower GI bleed Requesting Physician: Dr. Yannick Vázquez Attending Physician: Dr. Hossein Moreira History of Present Illness Patient is a 21 years old female who presented yesterday with complaints of chills, nausea, abdominal cramping, diarrhea and rectal bleeding. She has a history of ulcerative colitis, previously failed treatment with Mesalamine and Remicade. She had just moved back to [place] from [place]. States that she was started on Entyvio IV every 8 weeks by her GI provider in [place] over a year ago. States that she has had at least 2 episodes of UC flares while on the Entyvio, last episode few months after starting Entyvio. She recently completed a prolonged prednisone taper course for suspected UC flare. States that her symptoms never improved, continues to have abdominal cramping, diarrhea and rectal bleeding. Labs without signs of leukocytosis, however she is anemic with blood count of 7.7/25.7. No signs of renal issues. CT of abdomen pelvis showed signs of pancolitis with rectal involvement without signs of obstruction or abscess. Patient denies any sick contacts, recent antibiotic use. Stool cultures are negative, C. difficile not obtained yet. Allergies Allergy/AdvReac Type Severity Reaction Status Date / Time No Known Allergies Allergy Verified 03/04/22 22:21 Home Medications Medication Instructions Recorded Confirmed Type vedolizumab 300 mg intravenous 0 mg IV .[id number] 03/04/22 03/04/22 History solution (Entyvio) Patient History Medical History Inflammatory bowel disease PIH ( induced hypertension) Surgical History History of delivery History of colonoscopy Family History Father Ulcerative colitis Social History Smoking Status: Never smoker Hx Alcohol Use: No Hx Substance Use: No Preferred Language: Monegasque Communication Ability: Effective Supervisor Receiving And Processing Required: No Beliefs That Will Affect Care: None Current Living Situation: Family Current Living Situation Comment: Mother Other Information That Helps Us Care for You: No Feels Safe at Home: Yes Safety Concerns: Feels Safe At This Time Assistive Devices: None Review of Systems 2 Review of Systems: All systems reviewed & are unremarkable except as noted in HPI & below Physical Exam Constitutional: WD/WN, vitals as above well groomed, cooperative and comfortable Eyes: PERRL, conjunctivae normal, anicteric sclerae ENMT: external ear and nose normal, oropharynx normal Respiratory: normal respiratory effort, lungs clear to auscultation Cardiovascular: RRR, no murmur, no edema Gastrointestinal (Abdomen): TTP along R side, BS hypoactive, soft Skin: no rashes, warm and dry no jaundice Psychiatric: A+Ox3, euthymic affect Lymphatic: no lymphedema Results & Data ([facility]) Vital Signs (Past 12 Hours) Vital Signs Temp Pulse Pulse Resp BP BP Pulse Ox 03/05/22 01:15 36.8 C 78 16 109/74 98 03/05/22 00:50 83 18 115/66 99 03/04/22 23:42 83 16 117/74 99
[2022-03-05] MEDS ORDERED: IRON SUCROSE 300 MG in SODIUM CHLORIDE 0.9% 250 ML IV ONE (12:45)
[2022-03-06 07:21] LABS: Hematocrit (blood only) 25.9 % (37-47); Hemoglobin 7.7 g/dL (12.0-16.0); Mean Corpuscular Hemoglobin 24.5 pg (25-34); Mean Corpuscular Hgb Conc 29.7 g/dL (32-36); Mean Corpuscular Volume 82.5 fL (80-100); Mean Platelet Volume 8.2 fL (7.4-10.4); Nucleated RBC # (auto) 0.06 K/uL (0-0); Nucleated RBC % (auto) 1.2 %; Platelet Count 578 K/uL (130-400); RDW Coefficient of Variation 14.6 % (11.5-14.5); RDW Standard Deviation 43.8 fL (36.4-46.3); Red Blood Count 3.14 M/uL (4.2-5.4); White Blood Count 5.41 K/uL (4.8-10.8)
[2022-03-06 07:34] LABS: BUN Creatinine Ratio 10.8 (10-20); C Reactive Protein 0.63 mg/dl (0-0.5); Calcium 8.9 mg/dl (8.5-10.1); Creatinine Clr Calc Pharmacy 99.2 ml/min; Est GFR (Non-African American) 125.1 ml/min; Magnesium 2.1 mg/dl (1.7-2.4); Potassium 4.2 mmol/L (3.5-5.1)
--- NOTE | 2022-03-06 08:48 | Hospitalist Progress Note ---
Date of Service March 06, 2022 Assessment & Plan (1) History of lower GI bleeding: Plan: Protracted IBD flare-up - likely UC flare hx Entyvio infusion Patient nontoxic Rule out C. difficile C. difficile negative Stool culture negative ESR/CRP elevated, continue to monitor GI consult Re: IBD flareup - continue with methylprednisolone IV 20 mg every 8 hourly - on DC transition to Prednisone taper PO: 40mg daily x 1 week, 30mg daily x 1 week, 20mg daily x 1 week, 15mg daily x 1 week, 10mg daily x 1 week, 5mg daily x 1 week. - Next Entyvio infusion due 04/23/2022. We will work on getting local Entyvio infusion set up as her last dose was in [place] before she moved back to [place] - She has GI appt with Alise Bishop PA-C on 03/17 (12:30p) and Dr. Easley on 06/04/2022 Retrieve records from [place] medical genetics director (Dr. Weems). Chronic anemia, hemoglobin at baseline Continue monitor H&H Check iron, ferritin, transferrin , B12, folate levels Iron low, B12, folate WNL DVT prophylaxis. SCDs Re: GI bleed Full code Admission and Anticipated Discharge Date Admission Date: March 04, 2022 Subjective Patient seen in follow-up of GI bleed, UC flare Currently laying in bed, in no acute distress Reports that she is feeling better. Less frequent BMs, and less bleeding noted. No fevers, chills, chest pain, shortness of breath. Reports right lower abdominal pain much improved. Stool culture, C. difficile negative GI consulted Review of Systems Review of Systems: All systems reviewed & are unremarkable except as noted in Subjective Physical Exam Physical Exam: GENERAL: young thin F in NAD SKIN: Pallor, warm HEENT: NC/AT, EOMI, PERRL NECK : Supple, no tenderness CHEST : CTA, no tenderness HEART : RRR, no obvious murmurs ABDOMEN: soft, + mild right-sided abdominal tenderness (improved from previous exam), + bs EXTREMITIES : No LE swelling/tenderness, moves extremities SKIN: Pallor, warm NEUROLOGIC : Alert and oriented, answering questions appropriately, speech fluent, no facial asymmetry, moves extremities Results & Data Results & Data ([facility]) Vital Signs (Past 12 Hours) Vital Signs Temp Pulse Resp BP Pulse Ox 03/06/22 07:33 36.8 C 61 16 95/59 L 98 03/05/22 21:45 36.8 C 84 16 102/66 84 L Laboratory Results 03/06/22 03/06/22 03/06/22 Range/Units 06:58 06:58 06:58 WBC 5.41 (4.8-10.8) K/uL RBC 3.14 L (4.2-5.4) M/uL Hgb 7.7 L (12.0-16.0) g/dL Hct 25.9 L (37-47) % MCV 82.5 (80-100) fL MCH 24.5 L (25-34) pg MCHC 29.7 L (32-36) g/dL RDW Std Deviation 43.8 (36.4-46.3) fL RDW Coeff of You 14.6 H (11.5-14.5) % Plt Count 578 H (130-400) K/uL MPV 8.2 (7.4-10.4) fL Absolute Nucleated RBC 0.06 H (0-0) K/uL Nucleated RBC % (auto) 1.2 % ESR 37 H (0-20) mm/hr Sodium 138 (136-145) mmol/L Potassium 4.2 (3.5-5.1) mmol/L Chloride 105 (98-107) mmol/L Carbon Dioxide 28 (21-32) mmol/L Anion Gap 5 (3-11) BUN 7 (6-23) mg/dl Creatinine 0.65 (0.6-1.2) mg/dl Est Cr Clr Drug Dosing 99.2 ml/min Est GFR ( Amer) 145.0 ml/min Est GFR (Non-Af Amer) 125.1 ml/min BUN/Creatinine Ratio 10.8 (10-20) Glucose 108 H (70-99(Fasting)) mg/dl Calcium 8.9 (8.5-10.1) mg/dl Phosphorus 5.0 H (2.5-4.9) mg/dl Magnesium 2.1 (1.7-2.4) mg/dl Iron (35-150) mcg/dl Transferrin (200-360) mg/dl Ferritin (8-388) ng/ml C-Reactive Protein 0.63 H (0-0.5) mg/dl Vitamin B12 (180-914) pg/ml Folate (>5.38) ng/ml Stl C. diff Tox B Gene (Neg) 03/05/22 03/05/22 03/05/22 Range/Units 14:37 08:42 08:42 WBC (4.8-10.8) K/uL RBC (4.2-5.4) M/uL Hgb (12.0-16.0) g/dL Hct (37-47) % MCV (80-100) fL MCH (25-34) pg MCHC (32-36) g/dL RDW Std Deviation (36.4-46.3) fL RDW Coeff of You (11.5-14.5) % Plt Count (130-400) K/uL MPV (7.4-10.4) fL Absolute Nucleated RBC (0-0) K/uL Nucleated RBC % (auto) % ESR (0-20) mm/hr Sodium (136-145) mmol/L Potassium (3.5-5.1) mmol/L Chloride (98-107) mmol/L Carbon Dioxide (21-32) mmol/L Anion Gap (3-11) BUN (6-23) mg/dl Creatinine (0.6-1.2) mg/dl Est Cr Clr Drug Dosing ml/min Est GFR ( Amer) ml/min Est GFR (Non-Af Amer) ml/min BUN/Creatinine Ratio (10-20) Glucose (70-99(Fasting)) mg/dl Calcium (8.5-10.1) mg/dl Phosphorus (2.5-4.9) mg/dl Magnesium (1.7-2.4) mg/dl Iron (35-150) mcg/dl Transferrin (200-360) mg/dl Ferritin 6.5 L (8-388) ng/ml C-Reactive Protein (0-0.5) mg/dl Vitamin B12 250 (180-914) pg/ml Folate 14.56 (>5.38) ng/ml Stl C. diff Tox B Gene Negative Cdiff Gene (Neg) 03/05/22 03/05/22 Range/Units 08:42 08:42 WBC (4.8-10.8) K/uL RBC (4.2-5.4) M/uL Hgb (12.0-16.0) g/dL Hct (37-47) % MCV (80-100) fL MCH (25-34) pg MCHC (32-36) g/dL RDW Std Deviation (36.4-46.3) fL RDW Coeff of You (11.5-14.5) % Plt Count (130-400) K/uL MPV (7.4-10.4) fL Absolute Nucleated RBC (0-0) K/uL Nucleated RBC % (auto) % ESR 48 H (0-20) mm/hr Sodium (136-145) mmol/L Potassium (3.5-5.1) mmol/L Chloride (98-107) mmol/L Carbon Dioxide (21-32) mmol/L Anion Gap (3-11) BUN (6-23) mg/dl Creatinine (0.6-1.2) mg/dl Est Cr Clr Drug Dosing ml/min Est GFR ( Amer) ml/min Est GFR (Non-Af Amer) ml/min BUN/Creatinine Ratio (10-20) Glucose (70-99(Fasting)) mg/dl Calcium (8.5-10.1) mg/dl Phosphorus (2.5-4.9) mg/dl Magnesium (1.7-2.4) mg/dl Iron 15 L (35-150) mcg/dl Transferrin 226 (200-360) mg/dl Ferritin (8-388) ng/ml C-Reactive Protein 0.96 H (0-0.5) mg/dl Vitamin B12 (180-914) pg/ml Folate (>5.38) ng/ml Stl C. diff Tox B Gene (Neg) Medications Administered Current Inpatient Medications Acetaminophen (Acetaminophen 325 Mg Tab) 650 mg PO Q4H PRN PRN Reason: pain/fever Stop: 04/03/22 23:41 Last Admin: 03/05/22 01:47 Dose: 650 mg Documented by: Promethazine HCl 6.25 mg/ (Sodium Chloride) 50.25 mls @ 201 mls/hr IV Q6H PRN PRN Reason: Nausea And Vomiting Stop: 04/03/22 23:41 Last Infusion: 03/05/22 04:35 Dose: Infused Documented by: Methylprednisolone 20 mg/ (Syringe) 0.32 mls @ 1.5 mls/min IV Q8H [facility]ILDA Stop: 04/04/22 07:59 Last Admin: 03/05/22 23:38 Dose: 1.5 mls/min Documented by: Ketorolac Tromethamine (Ketorolac Tromethamine 15 Mg/Ml Vial) 15 mg IV Q6H PRN PRN Reason: Pain Stop: 03/09/22 23:41 Tramadol HCl (Tramadol Hcl 50 Mg Tablet) 25 - 50 mg PO Q4H PRN PRN Reason: Pain Stop: 04/03/22 23:40
[2022-03-06] MEDS: methylPREDNISolone 20 MG in SYRINGE 0 ML IV SCH ×3 (08:54→23:03)
--- NOTE | 2022-03-06 09:52 | Gastroenterology Progress Note ---
Date of Service March 06, 2022 Assessment & Plan (1) Acute GI bleeding: (2) Bowel disease, inflammatory: Plan: Patient is a 21 years old female admitted with symptoms of nausea, abdominal cramping, rectal bleeding. Work-up indicates anemia and CT with signs of pancol itis with rectal involvement however no obstruction or abscess. History of ulcerative colitis currently on Entyvio IV every 8 weeks. Stool cx and Cdiff negative. ESR/CRP up. Suspect she may have IBD flare. - Monitor blood ct and transfuse prn - Soft diet - Continue Methylprednisone 20mg IV q8hrs. Upon DC will transition to Prednisone taper PO: 40mg daily x 1 week, 30mg daily x 1 week, 20mg daily x 1 week, 15mg daily x 1 week, 10mg daily x 1 week, 5mg daily x 1 week. - Next Entyvio infusion due 04/23/2022. We will work on getting local Entyvio infusion set up as her last dose was in [place] before she moved back to [place] - She has GI appt with Alise Bishop PA-C on 03/17 (12:30p) and Dr. Easley on 06/04/2022 - Anticipate possible DC by tomorrow Admission and Anticipated Discharge Date Admission Date: March 04, 2022 Supervising Physician Co-Signing Physician Notes I have personally seen and examined the patient with MAGALY Upton. Her note reflects my exam and findings. I agree with her impression and plan. Symptoms improving. Cont oral pred as out patient. Hossein Moreira M.D. Subjective Pt feels well, states less abd pain and stools are a bit more formed (peanut butter consistency). Bowels move 5x yesterday, saw some rectal bleeding 2x. No n/v Review of Systems Review of Systems: All systems reviewed & are unremarkable except as noted in HPI & below Physical Exam Constitutional: WD/WN, vitals as above well groomed, cooperative and comfortable Eyes: PERRL, conjunctivae normal, anicteric sclerae ENMT: external ear and nose normal, oropharynx normal Respiratory: normal respiratory effort, lungs clear to auscultation Cardiovascular: RRR, no murmur, no edema Gastrointestinal (Abdomen): normal bowel sounds, soft, nontender, no hepatosplenomegaly Skin: no rashes, warm and dry no jaundice Psychiatric: A+Ox3, euthymic affect Lymphatic: no lymphedema Results & Data ([facility]) Vital Signs (Past 12 Hours) Vital Signs Temp Pulse Resp BP Pulse Ox 03/06/22 07:33 36.8 C 61 16 95/59 L 98
[2022-03-07 06:19] LABS: Hematocrit (blood only) 27.1 % (37-47); Hemoglobin 7.9 g/dL (12.0-16.0); Mean Corpuscular Hemoglobin 24.1 pg (25-34); Mean Corpuscular Hgb Conc 29.2 g/dL (32-36); Mean Corpuscular Volume 82.6 fL (80-100); Mean Platelet Volume 8.2 fL (7.4-10.4); Platelet Count 634 K/uL (130-400); RDW Coefficient of Variation 14.7 % (11.5-14.5); RDW Standard Deviation 44.8 fL (36.4-46.3); Red Blood Count 3.28 M/uL (4.2-5.4); White Blood Count 7.04 K/uL (4.8-10.8)
[2022-03-07 06:54] LABS: BUN Creatinine Ratio 19.7 (10-20); C Reactive Protein 0.68 mg/dl (0-0.5); Calcium 8.9 mg/dl (8.5-10.1); Creatinine Clr Calc Pharmacy 97.7 ml/min; Est GFR (African American) 144.3 ml/min; Est GFR (Non-African American) 124.5 ml/min; Potassium 4.5 mmol/L (3.5-5.1)
[2022-03-07] MEDS: methylPREDNISolone 20 MG in SYRINGE 0 ML IV SCH (08:56)
--- NOTE | 2022-03-07 09:17 | Gastroenterology Progress Note ---
Date of Service March 07, 2022 Assessment & Plan (1) Acute GI bleeding: (2) Bowel disease, inflammatory: Plan: Patient is a 21 years old female admitted with symptoms of nausea, abdominal cramping, rectal bleeding. Work-up indicates anemia and CT with signs of pancol itis with rectal involvement however no obstruction or abscess. History of ulcerative colitis currently on Entyvio IV every 8 weeks. Stool cx and Cdiff negative. ESR/CRP up. Suspect she may have IBD flare, clinically improved now - Monitor blood ct and transfuse prn - Soft diet - Continue Methylprednisone 20mg IV q8hrs. Upon DC will transition to Prednisone taper PO: 40mg daily x 1 week, 30mg daily x 1 week, 20mg daily x 1 week, 15mg daily x 1 week, 10mg daily x 1 week, 5mg daily x 1 week. - Next Entyvio infusion due 04/23/2022. We will work on getting local Entyvio infusion set up as her last dose was in [place] before she moved back to [place] - She has GI appt with Alise Bishop PA-C on 03/17 (12:30p) and Dr. Easley on 06/04/2022 - No contraindication for DC home today Admission and Anticipated Discharge Date Admission Date: March 04, 2022 Supervising Physician Co-Signing Physician Notes I saw and evaluated the patient. She notes that she is improving as of this morning and is likely to be discharged this afternoon. She will follow-up with her regular GI provider as an outpatient over the next few weeks as previously scheduled. Please call with any questions or concerns, GI to sign off Subjective Pt reports stools not as loose, and having less rectal bleeding. Tolerating solid meals w/o abd pain, n/v. Review of Systems Review of Systems: All systems reviewed & are unremarkable except as noted in HPI & below Physical Exam Constitutional: WD/WN, vitals as above well groomed, cooperative and comfortable Eyes: PERRL, conjunctivae normal, anicteric sclerae ENMT: external ear and nose normal, oropharynx normal Respiratory: normal respiratory effort, lungs clear to auscultation Cardiovascular: RRR, no murmur, no edema Gastrointestinal (Abdomen): normal bowel sounds, soft, nontender, no hepatosplenomegaly Skin: no rashes, warm and dry no jaundice Psychiatric: A+Ox3, euthymic affect Lymphatic: no lymphedema Results & Data ([facility]) Vital Signs (Past 12 Hours) Vital Signs Temp Pulse Resp BP Pulse Ox 03/07/22 07:20 36.8 C 65 16 91/55 L 100 03/06/22 21:45 36.7 C 65 20 95/61 L 98
--- NOTE | 2022-03-07 09:36 | Hospitalist Progress Note ---
Date of Service March 07, 2022 Assessment & Plan (1) History of lower GI bleeding: Plan: Protracted IBD flare-up - likely UC flare hx Entyvio infusion Patient nontoxic Rule out C. difficile C. difficile negative Stool culture negative ESR/CRP elevated, continue to monitor GI consult Re: IBD flareup - continue with methylprednisolone IV 20 mg every 8 hourly - on DC transition to Prednisone taper PO: 40mg daily x 1 week, 30mg daily x 1 week, 20mg daily x 1 week, 15mg daily x 1 week, 10mg daily x 1 week, 5mg daily x 1 week. - Next Entyvio infusion due 04/23/2022. We will work on getting local Entyvio infusion set up as her last dose was in [place] before she moved back to [place] - She has GI appt with Alise Bishop PA-C on 03/17 (12:30p) and Dr. 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 Chronic anemia, hemoglobin at baseline Continue monitor H&H Check iron, ferritin, transferrin , B12, folate levels Iron low, B12, folate WNL DVT prophylaxis. SCDs Re: GI bleed Full code Admission and Anticipated Discharge Date Admission Date: March 04, 2022 Subjective Patient seen in follow-up of GI bleed, UC flare Currently laying in bed, in no acute distress Reports that she is feeling better. Less frequent BMs, and less bleeding noted. No fevers, chills, chest pain, shortness of breath. Reports right lower abdominal pain much improved. Stool culture, C. difficile negative GI consulted Review of Systems Review of Systems: All systems reviewed & are unremarkable except as noted in Subjective Physical Exam Physical Exam: GENERAL: young thin F in NAD SKIN: Pallor, warm HEENT: NC/AT, EOMI, PERRL NECK : Supple, no tenderness CHEST : CTA, no tenderness HEART : RRR, no obvious murmurs ABDOMEN: soft, + minimal right-sided abdominal tenderness (much improved from initial exam), + bs EXTREMITIES : No LE swelling/tenderness, moves extremities SKIN: Pallor, warm NEUROLOGIC : Alert and oriented, answering questions appropriately, speech fluent, no facial asymmetry, moves extremities Results & Data Results & Data ([facility]) Vital Signs (Past 12 Hours) Vital Signs Temp Pulse Resp BP Pulse Ox 03/07/22 07:20 36.8 C 65 16 91/55 L 100 03/06/22 21:45 36.7 C 65 20 95/61 L 98 Laboratory Results 03/07/22 03/07/22 03/07/22 Range/Units 05:44 05:44 05:44 WBC 7.04 (4.8-10.8) K/uL RBC 3.28 L (4.2-5.4) M/uL Hgb 7.9 L (12.0-16.0) g/dL Hct 27.1 L (37-47) % MCV 82.6 (80-100) fL MCH 24.1 L (25-34) pg MCHC 29.2 L (32-36) g/dL RDW Std Deviation 44.8 (36.4-46.3) fL RDW Coeff of You 14.7 H (11.5-14.5) % Plt Count 634 H (130-400) K/uL MPV 8.2 (7.4-10.4) fL ESR 39 H (0-20) mm/hr Sodium 138 (136-145) mmol/L Potassium 4.5 (3.5-5.1) mmol/L Chloride 103 (98-107) mmol/L Carbon Dioxide 30 (21-32) mmol/L Anion Gap 5 (3-11) BUN 13 (6-23) mg/dl Creatinine 0.66 (0.6-1.2) mg/dl Est Cr Clr Drug Dosing 97.7 ml/min Est GFR ( Amer) 144.3 ml/min Est GFR (Non-Af Amer) 124.5 ml/min BUN/Creatinine Ratio 19.7 (10-20) Glucose 108 H (70-99(Fasting)) mg/dl Calcium 8.9 (8.5-10.1) mg/dl C-Reactive Protein 0.68 H (0-0.5) mg/dl Medications Administered Current Inpatient Medications Acetaminophen (Acetaminophen 325 Mg Tab) 650 mg PO Q4H PRN PRN Reason: pain/fever Stop: 04/03/22 23:41 Last Admin: 03/05/22 01:47 Dose: 650 mg Documented by: Promethazine HCl 6.25 mg/ (Sodium Chloride) 50.25 mls @ 201 mls/hr IV Q6H PRN PRN Reason: Nausea And Vomiting Stop: 04/03/22 23:41 Last Infusion: 03/05/22 04:35 Dose: Infused Documented by: Methylprednisolone 20 mg/ (Syringe) 0.32 mls @ 1.5 mls/min IV Q8H NILDA Stop: 04/04/22 07:59 Last Admin: 03/07/22 08:56 Dose: 1.5 mls/min Documented by: Ketorolac Tromethamine (Ketorolac Tromethamine 15 Mg/Ml Vial) 15 mg IV Q6H PRN PRN Reason: Pain Stop: 03/09/22 23:41 Tramadol HCl (Tramadol Hcl 50 Mg Tablet) 25 - 50 mg PO Q4H PRN PRN Reason: Pain Stop: 04/03/22 23:40
--- NOTE | 2022-03-07 12:55 | Discharge Summary ---
Date of Service March 07, 2022 Admission HPI Per Admitting Provider History obtained from patient and records. Medical history significant for ulcerative colitis currently on Entyvio, chronic anemia (baseline hemoglobin 8) history of preeclampsia. Last confinement September 2018 for ulcerative colitis flare. Patient subsequently relocated to [place], [place] for work. 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 Last infusion was a few weeks ago. Patient relocated back to [place], [place] early this year. Has been seeing her wood carver from [place] until patient can reestablish care with her [facility] GI specialist in [place] in May 2022. Last month, patient with achy abdominal pain more on the right with bloody diarrhea symptoms reminiscent of IBD flareup. No response to Entyvio infusions and outpatient prednisone courses. [facility] ([place], [place]) ER visit a few weeks ago which culminated in patient signing out AGAINST MEDICAL ADVICE because she was not happy with the care. No chest pain, no SOB. Some chills. No recent antibiotic Rx. Patient consulted ER for worsening symptoms. 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 Admission Exam Per Admitting Provider GENERAL: Comfortable, pleasant, underweight, no respiratory distress SKIN: Pallor, warm HEENT: Pale palpebral conjunctivae, no ptosis, dry buccal mucosa NECK : Supple, no tenderness CHEST : CTA, no tenderness HEART : RRR, no obvious murmurs ABDOMEN: Some distention, minimal right-sided abdominal tenderness EXTREMITIES : No LE swelling/tenderness, no other conspicuous deformities noted NEUROLOGIC : Coherent, no facial asymmetry, no other gross focality Principal Diagnosis Lower GI bleed, IBD flare Anemia Discharge Exam GENERAL: young thin F in NAD SKIN: Pallor, warm HEENT: NC/AT, EOMI, PERRL NECK : Supple, no tenderness CHEST : CTA, no tenderness HEART : RRR, no obvious murmurs ABDOMEN: soft, + minimal right-sided abdominal tenderness (much improved from initial exam), + bs EXTREMITIES : No LE swelling/tenderness, moves extremities SKIN: Pallor, warm NEUROLOGIC : Alert and oriented, answering questions appropriately, speech fluent, no facial asymmetry, moves extremities Discharge Data Allergies Allergy/AdvReac Type Severity Reaction Status Date / Time No Known Allergies Allergy Verified 03/04/22 22:21 Consultations 03/04/22 22:15 ED Decision to Admit Stat 03/05/22 00:30 Consult Health Information Management Routine 03/05/22 01:17 Consult Gastroenterology Routine Ordered Studies 03/04/22 23:37 CT abd pelvis IV con only Urgent IMPRESSION: 1. Findings consistent with a pancolitis which also involves the rectum. The findings favor active inflammatory bowel disease such as ulcerative colitis. An infectious colitis could appear similar. No abscess. No bowel obstruction. 2. Normal appendix. Hospital Course (1) History of lower GI bleeding: Protracted IBD flare-up - likely UC flare hx Entyvio infusion Patient nontoxic Rule out C. difficile C. difficile negative Stool culture negative ESR/CRP elevated, continue to monitor GI consult Re: IBD flareup - continue with methylprednisolone IV 20 mg every 8 hourly - on DC transition to Prednisone taper PO: 40mg daily x 1 week, 30mg daily x 1 week, 20mg daily x 1 week, 15mg daily x 1 week, 10mg daily x 1 week, 5mg daily x 1 week. - Next Entyvio infusion due 04/23/2022. We will work on getting local Entyvio infusion set up as her last dose was in [place] before she moved back to [place] - She has GI appt with Alise Bishop PA-C on 03/17 (12:30p) and Dr. 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 Weems). Chronic anemia, hemoglobin at baseline Continue monitor H&H Check iron, ferritin, transferrin , B12, folate levels Iron low, B12, folate WNL Total Time Total Time Spent Total Time Spent (In Minutes): 35 Discharge Plan Discharge Items Patient Disposition: Home - Self-Care Reason For Visit: LGIB Discharge Diagnosis: Lower GI bleed, IBD flare Anemia Activity: Per Instructions section Non-emergency contact: Primary Care Provider and Circuit Breaker Supervisor Call non-emergency contact if: you have any medication questions and your symptoms worsen Follow-up/Referrals: Alise Bishop PA-C [Physician [employer]] - (Date & Time 03/17/2022 12:30 PM Provider Alise Bishop PA-C Department Gastroenterology, [facility] ) Yolande Ba MD [Outside Practitioners] - (Date & Time 03/12/2022 11:00 AM Provider Yolande Ba MD Department Family [facility] ) Diet: Low Fiber Addtl Attending Provider Instructions: Follow-up with your primary care doctor, and wood carver. The appointment with your primary care doctor was scheduled for you for March 12, and appointment with your wood carver was scheduled for you for March 17. You will need to be on prednisone taper, as follows : 40mg daily x 1 week, 30mg daily x 1 week, 20mg daily x 1 week, 15mg daily x 1 week, 10mg daily x 1 week, 5mg daily x 1 week. Next Entyvio infusion due 04/23/2022 -discuss this further with your gastroenterology team. Pending Studies at Discharge: No Stand-Alone Forms: My [facility] Exit41, Smoking Cessation Medications and DC Order Prescriptions: New prednisone 20 mg tablet 40 mg PO DAILY 7 Days Qty: 14 RF: 0 prednisone 10 mg tablet 30 mg PO DAILY 7 Days Qty: 21 RF: 0 Continued Entyvio 300 mg Recon Soln 0 mg IV .[id number] RF: 0 Discharge Orders: Discharge Order (Routine); Ordered 03/07/22 Ordered By: Yannick Vázquez Admission Data Admit Date/Time: 03/04/22 23:41 Attending Provider: Yannick Vázquez Admit Provider: Chito Vidales Primary Care Provider: PCP,NO Other Providers: Chito Vidales ; Jamila Zaman ; Alise Bishop ; Tawanna Villanueva ; Dia Govea ; Cruz Vines ; Malathi Pereira ; Jody Easley ; Hossein Moreira ; Leyla Trevino ; Josie Angel ; Janell Quintanilla ; Marilynn Ruiz ; Janell Cordon
== END 2022-03-07 14:00 | disposition home or self-care (01) | DRG 386 ==
LOC: ED 20:47 → 3E 23:41